=== PATIENT | female | born 1970 | race Hispanic/Latino ===

== ENCOUNTER 2018-03-11 16:08 | Emergency (ER) | payer BC, SELFPAY ==
[2018-03-11] MEDS ORDERED: Lidocaine 1% 20 ML MDV ONE (16:17)
[2018-03-11] MEDS ORDERED: Bacitracin Zinc 1 Packet ONE (16:34)
== END 2018-03-11 16:50 | disposition home or self-care (01) ==
LOC: BURERS 16:08
DX: S61.012A Laceration without foreign body of left thumb without damage to nail, initial encounter (principal); W25.XXXA Contact with sharp glass, initial encounter
CPT/HCPCS: 12001; J2001

== ENCOUNTER 2018-03-25 15:23 | Emergency (ER) | payer SELFPAY | END 2018-03-25 15:39 | disposition home or self-care (01) | LOC: BURERS 15:23 | DX: S61.012D Laceration without foreign body of left thumb without damage to nail, subsequent encounter (principal); X58.XXXD Exposure to other specified factors, subsequent encounter ==